=== PATIENT | male | born 1995 | race Caucasian/White ===

== ENCOUNTER 2022-03-05 04:50 | Emergency (ER) | payer SELFPAY ==
[~2022-03-05] VITALS: Ht 177.8 cm; Wt 89.7 kg
[2022-03-05 04:59] VITALS: BP 140/84
[2022-03-05] MEDS ORDERED: LIDOCAINE HCL/EPINEPHRINE 1%-EPI 1:100,000 20 ML VIAL INFIL ONE (06:00)
[2022-03-05] MEDS ORDERED: BACITRACIN ZINC OINT UDPKT TOP ONE (06:00)
== END 2022-03-05 07:14 | disposition home or self-care (01) ==
LOC: ER 04:50
DX: S00.81XA Abrasion of other part of head, initial encounter (principal); W18.39XA Other fall on same level, initial encounter; Y93.89 Activity, other specified; Y92.89 Other specified places as the place of occurrence of the external cause; Y99.8 Other external cause status
CPT/HCPCS: 99284